=== PATIENT | male | born 1945 | race Caucasian/White ===

== ENCOUNTER 2018-09-12 21:38 | Observation (INO) | payer MEDICARE, BC ==
[~2018-09-12] VITALS: Ht 182.9 cm; Wt 92.0 kg
--- NOTE | ~2018-09-12 | HEMODYNAMI ---
PATIENT:BERT JACOB MEDICAL RECORD: [id number] : 49 LOCATION:[facility] D.2117 [facility]# [id number] ADMISSION DATE: 09/12/18 Generatedon:09/13/201810:22 Patient name: BERT JACOB Patient #: [id number] : 1945 Date of study: 09/13/2018 Page: Of Hemodynamic Procedure Report Patient Data Patient Demographics Procedure consent was obtained First Name: BERT Gender: Male Last Name: NIDIA : 1945 Middle Initial: A Age: 73 year(s) Patient #: [id number] Race: SSN: [id number] Additional ID: [id number] Contact details Address: [address] [address] State: [place] City: [place] Zip code: [address] Past Medical History Allergies: No known allergies Admission Admission Data Admission Date: 09/12/2018 Admission Time: 22:17 Arrival Date: 09/13/2018 Arrival Time: 0:00 Admit Source: Emergency Insurance Payor: Medicare, department Private health insurance Room #: D.2117 [facility] #: [id number] Height (in.): 71.65 BSA: 2.14 (m2) Height (cm.): 182 BMI: 27.77 (kg/m2) Weight (lbs.): 202.83 Weight (kg.): 92 Medications upon Admission Medications Dosage Times Administered Last Remarks per Delivery Day Date and Time DRAGAN Inhibitor (any) Beta Molina (any) Current Diagnosis Diagnosis Description Unstable angina Lab Results Lab Result Date: 09/13/2018 Lab Result Time: 4:38 Biochemistry Name Units Result Min Max BUN mg/dl 10 --(-*--)-- 7 18 Creatinine mg/dl 0.9 --(-*--)-- 0.6 1.3 CBC Name Units Result Min Max Hematocrit % 37 *-(----)-- 42 54 Hemoglobin g/dl 13 -*(----)-- 13.5 17.5 Procedure Procedure Types Cath Procedure Diagnostic Procedure [facility] w/Coronaries Sedation Charges Moderate Sedation up to 15 minutes Procedure Description Procedure Date Procedure Date: 09/13/2018 Procedure Start Time: 9:48 Procedure End Time: 10:15 Procedure Staff Name Function Efren Gama MD Performing Physician Amado Sparrow RT Monitor Justina Sabillon RT Scrub Rajan Jose RN Nurse Indication Chest heaviness and pressure Unstable angina Procedure Data Cath Procedure Fluoroscopy Diagnostic fluoroscopy Total fluoroscopy Time: 7 time: 7 min min Diagnostic fluoroscopy Total fluoroscopy dose: 867 dose: 867 mGy mGy Contrast Material Contrast Material Type Amount (ml) Isovue 300 164 Entry Location Entry Primary Successful Side Size Upsize Upsize Entry Closure Succes sful Closure Location (Fr) 1 (Fr) 2 (Fr) Remarks Device Remarks Femoral Right 5 Fr 6 Fr Exoseal artery Short Estimated blood loss: 5 ml Diagnostic catheters Device Type Used For End Catheter Placement MULTIPACK JL 4.0 5Fr Procedure catheter MULTIPACK 3DRC 5Fr Procedure catheter MULTIPACK Pigtail 5 Fr Procedure catheter Procedure Complications No complications Procedure Medications Medication Administration Route Dosage Oxygen etCO2 Nasal cannula 2 l/min Lidocaine 2% added to field 20 Heparin Flush Bag added to field 2 bags (1000units/500ml NS) 0.9% NaCl I.V. 100 ml/hr Versed I.V. 2 mg Fentanyl I.V. 100 mcg Versed I.V. 2 mg Heparin Bolus I.V. 4000 units Integrilin (Bolus I.V. 8.5 ml 2mg/ml) Versed I.V. 2 mg Fentanyl I.V. 50 mcg Heparin Drip I.V. drip 1000 units/hr (80639wmusm/250 D5W) Nitroglycerin IC/IA Hemodynamics Rest BSA: 2.14 (m2) HGB: 13 (g/dl) O2 Consumption: Estimated: 257.5 (ml/min) O2 Consu mption indexed: Estimated:120.33 (ml/min/m) Heart Rate: 83 (bpm) Pressure Samples Time Site Value (mmHg) Purpose Heart Use Rate(bpm) 9:54 LV 135/13,15 Snapshot 88 9:55 AO 138/82(110) Pullback 96 9:55 LV 114/39,15 Pullback 96 Gradients Valve Time Site 1 Site 2 Mean SEP/DFP Peak To Heart Use (mmHg) (sec/min) Peak Rate (mmHg) (bpm) Aortic 9:55 LV AO 0 96 114/39,15 138/82(110) Calculations Valve P-P Mean Valve Index Valve Source Name Gradient Area Flow (cm2) Aortic 0 0 Snapshots Pre Cath Intra NCS Post Cath Vital Signs Time Heart Resp SPO2 etCO2 NIBP (mmHg) Rhythm Pain Sedation Rate (ipm) (%) (mmHg) Status Level (bpm) 9:36:14 83 22 96 28.6 138/81(113) NSR 0 (11) 10(A) , No pain 9:40:28 81 16 96 16.5 133/75(103) NSR 0 (11) 10(A) , No pain 9:44:42 83 12 93 37.6 133/83(101) NSR 0 (11) 10(A) , No pain 9:48:54 84 13 95 41.4 142/81(105) NSR 0 (11) 10(A) , No pain 9:53:08 92 13 96 17.3 145/79(119) NSR 0 (11) 9(A) , No pain 9:57:22 88 12 96 39.9 139/80(106) NSR 0 (11) 9(A) , No pain 10:01:36 89 15 96 36.9 132/68(103) NSR 0 (11) 9(A) , No pain 10:04:07 87 11 96 24.8 112/65(92) NSR 0 (11) 9(A) , No pain 10:08:13 89 12 95 39.9 127/78(96) NSR 0 (11) 9(A) , No pain 10:12:25 89 11 96 39.9 132/79(113) NSR 0 (11) 9(A) , No pain 10:14:46 86 13 96 39.1 128/74(107) NSR 0 (11) 10(A) , No pain Medications Time Medication Route Dose Verified Delivered Reason No kyle Effectiveness by by 9:35:21 Oxygen etCO2 2 l/min Efren Tolentino used for Nasal [facility] Daniel Jose sawmill relief worker cannula 9:35:30 Lidocaine 2% added 20ml Efren Schwartz for local to vial [facility] Daniel Gama anesthetic field MD WOODRUFF 9:35:36 Heparin Flush added 2 bags Efren Schwartz used for Bag to [facility] procedure (1000units/500ml field MD WOODRUFF NS) 9:35:45 0.9% NaCl I.V. 100 Efren Buffie Per physician ml/hr St Daniel Jose RN, MD 9:48:21 Versed I.V. 2 mg Efren Buffie for sedation [facility] Daniel Jose RN, MD 9:48:27 Fentanyl I.V. 100 mcg Efren Buffie for sedation St Daniel Jose RN, MD 9:53:22 Versed I.V. 2 mg Efren Buffie for sedation St Daniel Jose RN, MD 9:55:57 Heparin Bolus I.V. 4000 Efren Buffie for ve rified units St Daniel Jose RN anticoagulation with dr MD goldman 9:57:23 Integrilin I.V. 8.5 ml Efren Buffie for wa sted 1.5 (Bolus 2mg/ml) St Daniel Jose RN antiplatelet ml of vial MD therapy 10:01:15 Nitroglycerin mixed Efren Schwartz for mi xed and IC/IA and on [facility] vasodilation placed on table MD WOODRUFF table for procedure. 10:02:10 Versed I.V. 2 mg Efren Buffie for sedation St Daniel Jose RN, MD 10:02:14 Fentanyl I.V. 50 mcg Efren Bojorquezie for sedation St Daniel Jose RN, MD 10:10:43 Heparin Drip I.V. 1000 Efren Buffie for ve rified (78715tcxvt/250 drip units/hr [facility] Daniel Jose RN anticoagulation with dr Euceda) MD goldman Procedure Log Time Note 8:51:39 Informed consent obtained and on chart 8:56:19 Patient allergic to No known allergies 8:56:22 Admit Source: Emergency department 8:56:38 Insurance Payor : Private health insurance, Medicare 8:56:59 Arrival Date: 09/13/2018 12:00:00 AM 8:57:05 Patient Height : 71.65 inches 8:57:09 Patient Weight : 202.83 lbs 8:57:43 Current Diagnosis : Unstable angina 9:01:40 Lab Result : Creatinine 0.9 mg/dl 9:01:40 Lab Result : BUN 10 mg/dl 9:01:40 Lab Result : Hematocrit 37 % 9:01:40 Lab Result : Hemoglobin 13 g/dl 9:01:52 Diagnostic Cath Status : Urgent 9:02:04 Indication : Chest heaviness and pressure 9:02:18 Indication : Unstable angina 9:02:34 ACC Patient presents with Unstable Angina CCS Anginal Class 4--Inability to carry out any physical activity w/o angina. Angina may occur at rest. 9:02:51 ACCPatient has been prescribed/administered the following anti-anginal medication within the last 2 weeks: Beta Molina, Long-Acting Nitrates, DRAGAN-Inhibitor 9:06:10 Procedure Status Urgent Heart Cath (IP). 9:06:13 Rajan Jose RN sent for patient. Start room use. 9:25:28 Time tracking: Call back (After hours or weekends) 9:25:32 Plan of Care:Hemodynamics will remain stable., Cardiac rhythm will remain stable., Comfort level will be maintained., Respiratory function will remain adequate., Patient/ family verbilizes understanding of procedure., Procedure tolerated without complication., Recovers from procedure without complications.. 9:25:43 H&P Date Dictated: 09/12/2018 Within 30 days and on chart.. 9:25:49 Patient received from Med II to CCL 1 Alert and oriented. Tansferred to table in Supine position. 9:25:50 Warm blankets applied, and poppy hugger turned on for patient comfort. 9:25:51 Correct patient and procedure confirmed by team. 9:25:51 ECG and BP/O2 sat monitors applied to patient. 9:25:52 Pre-procedure instructions explained to patient. 9:25:52 Pre-op teaching completed and patient verbalized understanding. 9:25:54 Family in patients room. 9:25:55 Patient NPO since Midnight. 9:35:09 Vital chart was started 9:35:21 Oxygen 2 l/min etCO2 Nasal cannula was administered by Rajan Jose RN; used for procedure; 9:35:30 Lidocaine 2% 20ml vial added to field was administered by Efren Gama MD; for local anesthetic; 9:35:36 Heparin Flush Bag (1000units/500ml NS) 2 bags added to field was administered by Efren Gama MD; used for procedure; 9:35:45 0.9% NaCl 100 ml/hr I.V. was administered by Rajan Jose RN; Per physician; 9:37:12 Baseline sample Acquired. 9:37:19 Rhythm: sinus rhythm 9:37:22 Full Disclosure recording started 9:40:06 Is the patient allergic to Iodine/contrast media? No. 9:40:08 Is patient on blood thinner?No 9:40:11 Patient diabetic? No. 9:40:15 Previous problem with sedation/anesthesia? No ? 9:40:17 Snore? Yes 9:40:18 Sleep apnea? No 9:40:19 Deviated septum? No 9:40:19 Opens mouth fully? Yes 9:40:20 Sticks out tongue? Yes 9:40:22 Airway obstruction? No ? 9:40:30 Dentures? Yes top in tight 9:40:50 Pre procedure: right dorsailis pedis pulse 1+ Palpable, but thready & weak; easily obliterated 9:40:59 Patient pain scale 0/10 ?. 9:41:05 IV patent on arrival in right forearm with 0.9% NaCl at O. 9:41:07 Lab results completed and on chart. 9:41:18 Right groin area was prepped with chlora-prep and draped in sterile fashion 9:41:18 Alarms reviewed by R. N. 9:41:19 Sharps counted by scrub and verified by R.N. 9:41:30 Use device set Femoral Dx 9:41:32 ACIST Syringe (00227) opened to sterile field. 9:41:32 Bag Decanter (2002) opened to sterile field. 9:41:45 Medline Cath Pack ([id number]) opened to sterile field. 9:41:46 ACIST Hand Control (16071) opened to sterile field. 9:41:47 ACIST Manifold (15623) opened to sterile field. 9:41:48 Tegaderm 4 x 4 (1626W) opened to sterile field. 9:41:48 EMERALD Guide Wire (151-381) opened to sterile field. 9:41:49 SHEATH 5FR [place] (OQM593) opened to sterile field. 9:41:50 DIAGNOSTIC Multipack 5Fr catheter set (SX1444) opened to sterile field. 9:41:55 Physician arrived 9:41:56 --------ALL STOP TIME OUT------ 9:41:56 Final Timeout: patient, procedure, and site verified with staff and physician. All members of the team are in agreement. 9:42:01 Right groin site verified by team. 9:42:05 Fire Safety Assessment: A--An alcohol-based skin anteseptic being used preoperatively., C--Open oxygen or nitrous oxide is being used., D--An ESU, laser, or fiber-optic light is being used. 9:42:23 Physical assessment completed. ASA score P 2 - A patient with mild systemic disease as per Efren Gama MD. 9:42:32 2) 60-89 Mildly reduced kidney function, and other findings (as for stage 1) point to kidney disease. 9:42:54 Maximum allowable contrast dose (3.7 X eGFR X 0.75)244 ml. 9:42:57 Sedation plan: IV Moderate Sedation Medication:Versed, Fentanyl 9:45:36 Zero performed for pressure channel P1 9:48:21 Versed 2 mg I.V. was administered by Rajan Jose RN; for sedation; 9:48:27 Fentanyl 100 mcg I.V. was administered by Rajan Jose RN; for sedation; 9:48:37 Zero performed for pressure channel P1 9:48:41 Procedure started. 9:48:45 Local anesthetic to right femoral artery with Lidocaine 2% by Efren Gama MD.INITIAL ACCESS ONLY 9:48:57 A 5 Fr sheath was inserted into the Right Femoral artery 9:50:24 A MULTIPACK JL 4.0 5Fr catheter was advanced over the wire and used for Procedure. 9:51:50 WHISPER 300cm guide wire ([id number]) opened to sterile field. 9:51:50 INFLATOR Merit BasixCompak (LP3905) opened to sterile field. 9:51:51 SHEATH 6FR [place] (ASC683) opened to sterile field. 9:51:59 LCA angiography performed. 9:52:01 Catheter exchanged over wire. 9:52:06 A MULTIPACK 3DRC 5Fr catheter was advanced over the wire and used for Procedure. 9:52:17 GUIDE 6FR XBLAD 3.5 catheter (26689807) opened to sterile field. 9:53:19 RCA angiography performed. 9:53:21 Catheter exchanged over wire. 9:53:22 Versed 2 mg I.V. was administered by Rajan Jose RN; for sedation; 9:53:26 A MULTIPACK Pigtail 5 Fr catheter was advanced over the wire and used for Procedure. 9:54:48 ACCDominant side:Right 9:54:48 LV gram done using CAMPO 9:54:50 Injector settings: Ml/sec: 10, Volume: 20, 9:54:51 LV hemodynamics recorded. 9:54:55 EF : 55 % 9:55:26 Catheter removed. 9:55:32 Sheath upsized to a 6 Fr Short. 9:55:57 Heparin Bolus 4000 units I.V. was administered by Rajan Jose RN; for anticoagulation; verified with dr goldman 9:57:23 Integrilin (Bolus 2mg/ml) 8.5 ml I.V. was administered by Rajan Jose RN; for antiplatelet therapy; wasted 1.5 ml of vial 9:58:02 6 Fr xblad 3.5 guide catheter was inserted over the wire 10:01:15 Nitroglycerin IC/IA mixed and on table was administered by Efren Gama MD; for vasodilation; mixed and placed on table for procedure. 10:01:32 Guide Catheter removed. pressure damping. 10:01:44 GUIDE 6FR EBU 3.5 SH catheter ([id number]) opened to sterile field. 10:01:52 6 Fr ebu 3.5 sh guide catheter was inserted over the wire 10:02:10 Versed 2 mg I.V. was administered by Raajn Jose RN; for sedation; 10:02:14 Fentanyl 50 mcg I.V. was administered by Rajan Jose RN; for sedation; 10:08:34 LCA angiography performed. 10:08:40 EXOSEAL 6Fr (EX600) opened to sterile field. 10:08:47 Sheath removed intact; hemostasis achieved with Exoseal to the Right Femoral artery. 10:08:48 Procedure ended.(Physican Out) 10:08:56 Fluoroscopy time 07.00 minutes. 10:09:00 Flurop Dose total: 867 10:09:00 Fluoroscopy dose: 867 mGy 10:09:10 Dose Area Product 37555 mGy/cm. 10:09:18 Contrast amount:Isovue 300 164ml. 10:09:21 Maximum allowable dose exceeded? No. 10:09:24 Sharps counted by scrub and verified by R.N. 10:09:36 Insertion/operative site no bleeding no hematoma. 10:09:38 Post-op/insertion site Right Femoral artery dressed using a 4 x 4 and Tegaderm. 10:09:41 Post right femoral artery:stable, soft, clean and dry 10:10:43 Heparin Drip (93337uegcp/250 D5W) 1000 units/hr I.V. drip was administered by Rajan Jose RN; for anticoagulation; verified with dr goldman 10:13:12 Post-procedure physical assessment completed. ASA score P 2 - A patient with mild systemic disease as per Efren Gama MD. 10:13:15 Post procedure rhythm: unchanged. 10:13:17 Estimated blood loss: 5 ml 10:13:18 Post procedure instruction explained to patient.Patient verbalizes understanding. 10:13:18 Patient needs reinforcement of post procedure teaching. 10:13:29 Procedure type changed to Cath procedure, Diagnostic procedure, LHC, LHC w/Coronaries, Sedation Charges, Moderate Sedation up to 15 minutes 10:15:01 Procedure and supply charges have been captured, reviewed, submitted and are correct. 10:15:04 Procedure Complication : No complications 10:15:06 Vital chart was stopped 10:15:06 See physician's report for complete and final results. 10:15:07 Report given to PCU. 10:15:09 Patient transfered to PCU with Stretcher. 10:15:12 Procedure ended. 10:15:12 Full Disclosure recording stopped 10:15:23 End room use (Document Last) 10:16:04 CABG status: Elective 10:16:10 CABG indication: PCI failure without clinical deterioration Device Usage Item Name Manufacture Quantity Catalog Hospital Part Current Minimal Lot# / Number Charge Number Stock Stock Serial# Code ACIST Acist 1 91273 150061 387358 952891 20 Syringe Medical (90792) Systems Inc Bag Decanter Microtek 1 2001S 499338 50689 142998 5 () Medical Inc. Medline Cath Medline 1 [id number] 631809 14289 425462 5 Pack ([id number]) ACIST Hand Acist 1 60926 386108 921005 235838 5 Control Medical (58492) Systems Inc ACIST Acist 1 99792 715174 813671 195789 5 Manifold Medical (59810) Systems Inc Tegaderm 4 x 3M 1 1626W 299390 829757 384294 5 4 (1626W) EMERALD Cardinal 1 502-455 763963 261366 199025 5 Guide Wire Health (502-455) SHEATH 5FR Terumo 1 JEN007 893747 834425 859912 5 [place] (GAQ448) DIAGNOSTIC Cardinal 1 AE7221 422380 39934 716460 30 Multipack Health 5Fr catheter set (DD3425) MULTIPACK JL Cardinal 1 392172 5 4.0 5Fr Health catheter WHISPER [place] 1 [id number] 963443 486303 076578 5 300cm guide Vascular wire (8278666RN) INFLATOR Merit 1 MP1727 631998 316494 344205 15 [facility] Medical BasixCompak (OW3528) SHEATH 6FR Terumo 1 YOL656 360429 044376 382568 40 [place] (MUF936) MULTIPACK Cardinal 1 603577 5 3DRC 5Fr Health catheter GUIDE 6FR Cardinal 1 [id number] 073150 774176 815757 10 XBLAD 3.5 Health catheter (13165848) MULTIPACK Cardinal 1 783810 5 Pigtail 5 Fr Health catheter GUIDE 6FR Medtronic 1 [id number] 766873 40937 114727 1 EBU 3.5 SH catheter ([id number]) EXOSEAL 6Fr Cardinal 1 EX600 452226 993088 542741 10 (EX600) Health Signature Audit [place] Stage Time Signature Unsigned Intra-Procedure 09/13/2018 Amado Sparrow 10:22:05 AM RT(R) Signatures Performing Physician : Signature : Efren Gama MD Date : Time : Monitor : Amado Sparrow RT Signature : Date : Time : Nurse : Rajan Jose RN Signature : Date : Time : [address] [address] [place] [address]
--- NOTE | ~2018-09-12 | OP ---
PATIENT NAME: BERT JACOB MEDICAL RECORD: [id number] :49 LOCATION:D.M2 D.2117 ADMISSION DATE:09/12/18 SURGEON: DONTE STOREY MD DATE OF OPERATION: 09/13/2018 PROCEDURE: Left heart catheterization, selective coronary angiography, right femoral artery approach. CATHETERS: A 5-Czech sheath, 5/4 left and right Lakshmi. The procedure was well tolerated. The patient was returned to the ingram, sheath removed and heparin drip started as well as ExoSeal device placed. FINDINGS: Left ventriculography in 30-degree CAMPO view: Normal wall motion, normal systolic function. CORONARY ANATOMY: LEFT MAIN: Left main shows damping with the guide catheter and the straight AP view shows ostial stenosis of the left main of 80%. LAD: LAD has a proximal stenosis at the ostium of approximately 56%, has a diagonal 2, has an ostial stenosis of 80%. CIRCUMFLEX: Has sequential stenosis of 80%. RIGHT CORONARY ARTERY: Has luminal irregularities, no flow obstructive disease. IMPRESSION: Ostial left main disease. Preserved LV systolic function. Given location of left main disease, probably best served by coronary artery bypass grafting via Dr. Mai who will be consulted for that purpose. TRANSINT:[id number] Voice Confirmation ID: [id number] DOCUMENT ID: [id number] DONTE STOREY MD CC: [id number] DICTATION DATE: 09/13/18 1020 TORPEDO MAN: 09/13/18 1156 ADM IN [facility] [address] [place] [address]
--- NOTE | ~2018-09-12 | CN ---
PATIENT NAME:BERT JACOB MEDICAL RECORD: [id number] : 49 LOCATION:. D.2117 ADMIT DATE: 09/12/18 ACCOUNT: [id number] CONSULTING PHYSICIAN: DONTE STOREY MD REFERRING PHYSICIAN: KEV ELDRIDGE MD DATE OF CONSULTATION: 09/12/2018 HISTORY OF PRESENT ILLNESS: A 73-year-old gentleman with no known history of coronary artery disease, history of hypertension and hyperlipidemia, describes classic angina, gradual over the last 4 weeks. He had rest symptomology yesterday and actually went into [facility]. He was transferred here for further evaluation. ECG shows nonspecific ST-T changes. We are asked to see him concerning his cardiovascular status. PAST MEDICAL HISTORY: Includes; 1. History of hypertension. 2. Hyperlipidemia. ALLERGIES: None known. MEDICATIONS: Typically, include lisinopril 10 mg p.o. daily, metoprolol 25 daily, pravastatin 10 daily, isosorbide 30 daily, and Zetia 10 mg daily. SOCIAL HISTORY: . Nonsmoker. He does try to exercise on a regular basis. He takes care of his ADLs. REVIEW OF SYSTEMS: The patient reports easy bruising but reports no swollen glands. The patient reports no fever, no night sweats, no significant weight gain, no significant weight loss. No significant exercise tolerance. The patient reports no dry eyes, no irritation, no vision change. Patient reports no difficulty hearing and no ear pain. Patient reports no frequent nose bleeds or nose and sinus problems. Patient reports on arm pain on exertion. No shortness of breath while lying down. No history of heart murmur. Patient reports no cough, no wheezing or coughing up blood. Patient reports no abdominal pain, no vomiting. Normal appetite. No diarrhea and not vomiting blood. No nausea and no constipation. Patient reports no incontinence. No difficulty urinating. No hematuria. No increased frequency. Patient reports no muscle aches. No weakness, no arthralgias, no back pain. No swelling of the extremities. Patient reports no abnormal mole, no jaundice, no rashes. Reports no loss of consciousness. No weakness and no numbness. No seizures, dizziness, or headaches. The patient reports no depression, no sleep disturbance, feeling safe in a relationship and no alcohol abuse. Patient reports on fatigue. Reports no runny nose or sinus pressure. No itching, no hives, and no frequent sneezing. PHYSICAL EXAMINATION: GENERAL: Well-developed and well-nourished gentleman, appears stated age. VITAL SIGNS: Blood pressure 109/71. Pulse 72 and regular. HEENT: Normocephalic and atraumatic. NECK: No JVD or bruit. HEART: Regular. LUNGS: Garcia are clear. ABDOMEN: Soft and nontender. EXTREMITIES: Pulses 2+ with no edema. NEUROLOGIC: Grossly intact. CONSULT REPORT [id number] BERT JACOB DIAGNOSTIC DATA: ECG shows right bundle-branch block, left axis deviation, and nonspecific ST-T changes inferolaterally. IMPRESSION: Acute coronary syndrome with rest symptomology. PLAN: Angiography and intervention based on above. TRANSINT:[id number] Voice Confirmation ID: [id number] DOCUMENT ID: [id number] DONTE STOREY MD CC: [id number] DICTATION DATE: 09/13/18 1018 BUILDING CLEANER: 09/13/18 1158 ADM IN [facility] [address] [id number]
[2018-09-12] MEDS ORDERED: PRAVACHOL20 MG PO (21:47)
[2018-09-12] MEDS ORDERED: METOPROLOL TART25 MG PO (21:47)
[2018-09-12] MEDS ORDERED: ZESTRIL10 MG PO (21:47)
[2018-09-12] MEDS ORDERED: ISOSORBIDE MONO30 M1 PO (21:47)
[2018-09-12 22:04] LABS: BASOPHILS 0.3 % (0-2); EOSINOPHILS 4.3 % (0-7); HEMATOCRIT 40.3 % (42.0-54.0); HEMOGLOBIN 13.7 g/dL (13.5-17.5); IMMATURE GRANULOCYTES 0.3 % (0-5); LYMPHOCYTES 25.5 % (15-50); MCH 28.7 pg (26.0-34.0); MCV 84.3 fL (80.0-100.0); MEAN PLATELET VOLUME 9.4 fL (7.4-10.4); MONOCYTES 13.2 % (2-11); NEUTROPHILS 56.4 % (40-80); PLATELET COUNT 259 10x3/uL (130-400); RBC 4.78 10x6/uL (4.20-6.10); RDW 14.6 % (11.5-14.5); WBC 7.2 10x3/uL (4.8-10.8)
[2018-09-12 22:05] VITALS: BP 112/64; BP 1162/64
[2018-09-12 22:17] LABS: ALBUMIN 3.5 g/dL (3.4-5.0); ALKALINE PHOSPHATASE 76 U/L (46-116); ALT (SGPT) 23 U/L (10-68); BILIRUBIN - TOTAL 0.23 mg/dL (0.2-1.3); CALC OSMOLALITY 274 mosm/kg (275-300); CALCIUM 8.8 mg/dL (8.5-10.1); CHLORIDE - SERUM 104 mmol/L (98-107); CREATININE - SERUM 0.9 mg/dL (0.6-1.3); GLUCOSE 141 mg/dL (74-106); POTASSIUM - SERUM 3.8 mmol/L (3.5-5.1); PROTEIN - SERUM 7.2 g/dL (6.4-8.2); SODIUM 137 mmol/L (136-145); UREA NITROGEN 9 mg/dL (7-18); eGFR NON AFRICAN AMERICAN 88 mL/min (90-120)
[2018-09-12 22:19] LABS: APTT 29.9 SECONDS (22.8-39.4); INR 0.93 (0.85-1.17)
[2018-09-12 22:28] LABS: CKMB 1.8 U/L (0.0-3.6); CREATINE KINASE 108 UL (21-232); MAGNESIUM - SERUM 2.3 mg/dL (1.8-2.4)
[2018-09-12 22:29] LABS: TROPONIN-I < 0.017 ng/mL (0.000-0.060)
[2018-09-13] VITALS (7 sets, daily range): BP systolic 109–131; BP diastolic 62–76; Ht 182.9 cm; Wt 92.0 kg
[2018-09-13] MEDS ORDERED: ZETIA10 MG PO (00:05)
--- NOTE | 2018-09-13 00:27 | NUR ---
REPORT RECIEVED AND PATIENT IN ROOM. PATIENT LAYING IN BED, PATIENT STATES CAME IN THE ER FOR CHEST PAINS, CURRENTLY PATIENT STATES HE IS NOT HAVING CHEST PAINS. PATIENT HAS A RIGHT FORE ARM PIV RUNNING NORMAL SALINE, NO S/SX OF INFILTRATION OR INFECTION. PATIENT IS SHOWING NO S/SX OF DISTRESS AT THIS TIME. PATIENT'S BED IN LOWEST LOCKED POSITION, CALL LIGHTR WITHIN RIGHT. PATIENT IS A&O X4 AND UP AD MELODY. PATIENT DENIES SOB WHEN AMBULATING. PATIENT STATES HE HAS NO NEEDS AT THIS TIME.
[2018-09-13 04:59] LABS: BASOPHILS 0.2 % (0-2); EOSINOPHILS 3.9 % (0-7); IMMATURE GRANULOCYTES 0.5 % (0-5); LYMPHOCYTES 30.8 % (15-50); MCH 29.7 pg (26.0-34.0); MCHC 35.1 g/dL (31.0-37.0); MCV 84.5 fL (80.0-100.0); MEAN PLATELET VOLUME 9.4 fL (7.4-10.4); MONOCYTES 10.9 % (2-11); NEUTROPHILS 53.7 % (40-80); PLATELET COUNT 243 10x3/uL (130-400); RBC 4.38 10x6/uL (4.20-6.10); RDW 14.8 % (11.5-14.5)
[2018-09-13 05:23] LABS: ALBUMIN 3.3 g/dL (3.4-5.0); ALKALINE PHOSPHATASE 61 U/L (46-116); ALT (SGPT) 23 U/L (10-68); BILIRUBIN - TOTAL 0.27 mg/dL (0.2-1.3); CALC OSMOLALITY 277 mosm/kg (275-300); CALCIUM 8.7 mg/dL (8.5-10.1); CARBON DIOXIDE 28.4 mmol/L (21.0-32.0); CHLORIDE - SERUM 106 mmol/L (98-107); CKMB 1.6 U/L (0.0-3.6); CREATINE KINASE 89 UL (21-232); CREATININE - SERUM 0.9 mg/dL (0.6-1.3); GLUCOSE 102 mg/dL (74-106); POTASSIUM - SERUM 4.7 mmol/L (3.5-5.1); PROTEIN - SERUM 6.5 g/dL (6.4-8.2); SODIUM 140 mmol/L (136-145); TROPONIN-I < 0.017 ng/mL (0.000-0.060); UREA NITROGEN 10 mg/dL (7-18); eGFR NON AFRICAN AMERICAN 88 mL/min (90-120)
--- NOTE | 2018-09-13 07:15 | NUR ---
RECEIVED PT IN BED AAOX4 RESP UNLABORED SKIN W/D DENIES ANY NEEDS OR DISCOMFORT AT THIS TIME
--- NOTE | 2018-09-13 09:30 | NUR ---
TO [facility] VIA BED WITH STAFF
--- NOTE | 2018-09-13 10:40 | NUR ---
RECEIVED PT BACK FROM [facility] VIA BED EYES CLOSED RESP UNLABORED SKIN W/D COLOR WNL VSS DRSG TO RT GROION C/D/I NO SIGN OF BLEEDING PPPX4 WILL CONTINUE TO MONITOR HEPARIN GTT 1000 UNIT/HOUR
[2018-09-13] MEDS ORDERED: ASPIRIN325 MG PO (17:11)
[2018-09-13] MEDS ORDERED: HEPARIN 2525 K U/250 IV (17:11)
--- NOTE | 2018-09-13 17:20 | NUR ---
REVIWED DISCHARGE INSRUCTIONS FOR TRANSFER TO [facility] IN [place] PT STATES UNDERSTANDING COPY GIVEN CALLED REPORT TO [facility] SPOKE WITH SOLO BROWN RN REPORT GIVEN [facility] NOTIFIED FOR TRANSFER WAIT TIME WILL BE ABOUT 1 HOUR
--- NOTE | 2018-09-13 19:48 | NUR ---
[facility] HERE TO TRANSPORT [place] [facility]. IV TO RIGHT FA WITH HEPRIN AT 5CC/HR CONT.. EMT TOOK PUMP TO CONT HEPRIN. SPOUSE AT BEDSIDE. ALERT AND ORIENTED X4. AMBULATED TO STRETCHER. PAPER WORK GIVEN TO [facility]TAIN FOR TRANSFER. NO DISTRESS OBSERVED.
--- NOTE | 2018-09-14 09:56 | MORECARE ---
CASE MANAGEMENT DISCHARGE SUMMARY PATIENT: BERT JACOB UNIT: [id number] ADM DATE: 09/12/18 AGE: 73 : 47 SEX: M ROOM/BED: D.2117 AUTHOR: CARLOS KEE PHYSICIAN: REFERRING PHYSICIAN: KEV ELDRIDGE MD DATE OF SERVICE: 09/14/18 Discharge Plan Patient Name: [facility]ERT JACOB [facility] [facility] 1945 Planned Disposition: Acute Care Hospital Anticipated Discharge Date: 09/13/18 Discharge Date: 09/13/2018 Expected LOS: 1 Initial Reviewer: [email or web address] Initial Review Date: 09/14/2018 Generated: 09/14/18 10:55 am Patient Name: BERT JACOB Page [phone] at [phone] All edits/amendments must be made on the electronic document DICTATION DATE: 09/14/1855 CREATIVE INTERN: DM 09/14/1855 RPT#: [id number] DC DATE:09/13/18 STATUS: DIS IN [facility] [address] [place] [address] END OF REPORT
== END 2018-09-13 20:39 | disposition short-term general hospital (02) ==
LOC: D.ER 21:38 → D.M2 22:17 → OBSVTIME 22:17 → D.M2 09-13 20:39
PROVIDERS: Family Medicine; ADMIT Family Medicine; ATTEND Family Medicine
DX: I25.10 Atherosclerotic heart disease of native coronary artery without angina pectoris (principal); E78.5 Hyperlipidemia, unspecified; I10 Essential (primary) hypertension; I24.9 Acute ischemic heart disease, unspecified